=== PATIENT | female | born 1980 | race Two or more races ===

== ENCOUNTER → 2024-06-21 | Outpatient (CLI) | payer OTHER ==
[2024-06-21 08:30] LABS: Urine Bacteria None Seen /hpf (None Seen)
[2024-06-21 08:37] LABS: Basophils # (auto) 0.1 10 ^3/uL (0-0.2); Eosinophils # (auto) 0.6 10 ^3/uL (0-0.8); Mean Corpuscular Hemoglobin 24.1 pg (28.0-32.0); Neutrophils # (auto) 5.4 10 ^3/uL (1.6-8.6)
[2024-06-21 08:39] LABS: Basophils % (auto) 0.8 % (0.0-2.0); Eosinophils % (auto) 6.7 % (0.0-7.0); Hematocrit 41.2 % (36.0-46.0); Lymphocytes # (auto) 2.2 10 ^3/uL (0.4-5.4); Lymphocytes % (auto) 24.2 % (10.0-50.0); Mean Corpuscular Hgb Conc. 31.6 g/dL (32.0-36.0); Mean Corpuscular Volume 76.5 fL (80.0-100.0); Monocytes # (auto) 0.9 10 ^3/uL (0-1.3); Monocytes % (auto) 9.6 % (0.0-12.0); Neutrophils % (auto) 58.7 % (37.0-80.0); Nucleated Red Blood Cells % 0.1 %; Platelet Count (auto) 261 10^3/uL (140-450); Red Blood Cells 5.39 10^6/uL (4.0-5.20); Red Cell Distribution Width 16.8 % (11.8-14.3); White Blood Cell 9.2 10^3/uL (4.4-10.8)
[2024-06-21 08:56] LABS: Urine Blood Negative /uL (Negative); Urine Clarity Clear (Clear); Urine Color Yellow (Yellow); Urine Mucus FEW (None Seen); Urine Protein, UAD TRACE (Negative); Urine Specific Gravity 1.027 (1.001-1.035); Urine Squamous Epithelial Cell FEW /hpf (<5); Urine Urobilinogen Normal (Negative); Urine WBC 1 /HPF (0-5); Urine pH 6.5 (5.0-9.0)
[2024-06-21 09:15] LABS: Alanine Aminotransferase 34 U/L (7-40); Alkaline Phosphatase 71 U/L (46-116); Anion Gap 7 (5-15); Aspartate Aminotransferase 28 U/L (13-40); BUN/Creatinine Ratio 19.7 (10.0-20.0); Blood Urea Nitrogen 15 mg/dL (9-23); Calcium 10.1 mg/dL (8.7-10.4); Carbon Dioxide 26 mmol/L (20-31); Chloride 103 mmol/L (98-107); Glucose 157 mg/dL (74-106); Potassium 4.5 mmol/L (3.5-5.1); Sodium 136 mmol/L (136-145)
[2024-06-21 09:16] LABS: LDL Cholesterol 103 mg/dL (< 100); Triglycerides 128 mg/dL (< 150)
[2024-06-21 09:17] LABS: Albumin 4.5 g/dL (3.2-4.8); Cholesterol 156 mg/dL (< 200); Total Protein 7.4 g/dL (5.7-8.2)
[2024-06-21 09:21] LABS: HDL Cholesterol 44 mg/dL (40-59)
[2024-06-21 11:14] LABS: Free T4 (Free Thyroxine) 0.96 ng/dL (0.89-1.76)
[2024-06-21 12:45] LABS: Bilirubin, Total 0.6 mg/dL (0.2-1.0)
== END | disposition home or self-care (01) ==
LOC: LAB 08:19
PROVIDERS: ATTEND Internal Medicine
DX: E11.9 Type 2 diabetes mellitus without complications (principal); I10 Essential (primary) hypertension
CPT/HCPCS: 36415; 80053; 80061; 81001; 82043; 82607; 84439; 84443; 85025

== ENCOUNTER → 2024-07-27 | Outpatient (CLI) | payer OTHER | END | disposition home or self-care (01) | LOC: LAB 07:35 | PROVIDERS: ATTEND Internal Medicine | DX: Z12.11 Encounter for screening for malignant neoplasm of colon (principal) | CPT/HCPCS: 82270; 82272 ==

== ENCOUNTER → 2025-02-27 | Outpatient (CLI) | payer OTHER ==
[2025-02-27 08:12] LABS: Hemoglobin 12.2 g/dL (12.2-16.2)
[2025-02-27 08:15] LABS: Hematocrit 38.7 % (36.0-46.0); Mean Corpuscular Hemoglobin 23.4 pg (28.0-32.0); Mean Corpuscular Volume 74.1 fL (80.0-100.0); Nucleated Red Blood Cells % 0.0 %
[2025-02-27 08:47] LABS: Urine Protein, UAD TRACE (Negative)
[2025-02-27 12:10] LABS: Alanine Aminotransferase 34 U/L (7-40); Alkaline Phosphatase 96 U/L (46-116); Anion Gap 9 (5-15); BUN/Creatinine Ratio 14.7 (10.0-20.0); Blood Urea Nitrogen 11 mg/dL (9-23); Calcium 9.1 mg/dL (8.7-10.4); Carbon Dioxide 28 mmol/L (20-31); Chloride 99 mmol/L (98-107); Potassium 4.1 mmol/L (3.5-5.1); Sodium 136 mmol/L (136-145); Total Protein 7.5 g/dL (5.7-8.2)
[2025-02-27 12:11] LABS: Albumin 4.1 g/dL (3.2-4.8); Bilirubin, Total 0.4 mg/dL (0.2-1.0); Cholesterol 142 mg/dL (< 200); HDL Cholesterol 41 mg/dL (40-59)
[2025-02-27 12:15] LABS: Glucose 236 mg/dL (74-106); Triglycerides 239 mg/dL (< 150)
== END | disposition home or self-care (01) ==
LOC: LAB 07:47
PROVIDERS: ATTEND Internal Medicine
DX: I10 Essential (primary) hypertension (principal); E11.9 Type 2 diabetes mellitus without complications
CPT/HCPCS: 36415; 80053; 80061; 81001; 82043; 83036; 84439; 84443; 85025; 85652

== ENCOUNTER 2025-04-12 10:38 | Outpatient (CLI) | payer OTHER ==
--- NOTE | 2025-04-12 12:32 | DVH ---
US US GUIDANCE FOR NEEDLE PLACEME, HISTORY: LEFT BREAST Biopsy PROCEDURE: Informed consent was obtained. The patient was positioned supine on the table, and limited US was performed of the left breast. The skin overlying the biopsy site was prepped with chlorhexidine which was allowed to dry. Time out was performed. The entry site was anesthetized with 1% lidocaine. A 16 gauge Biopince needle was advanced into the mass. Multiple core biopsy samples were obtained using the 16 gauge biopsy needle. The samples were sent to formalin to pathology for analysis. A marker clip was deployed in the mass. Imaging through the biopsy site was performed. No immediate complication was identified. FINDINGS: Intra-procedural images show the biopsy needle at the lesion. No significant post biopsy hemorrhage is identified. IMPRESSION: US-guided biopsy of the left breast lesion at 9 o clock . Pathology results pending.
== END 2025-04-12 17:00 | disposition home or self-care (01) ==
LOC: XYW 10:38
PROVIDERS: ATTEND Internal Medicine
DX: N63.25 Unspecified lump in the left breast, overlapping quadrants (principal); N60.32 Fibrosclerosis of left breast
CPT/HCPCS: 19083; 76642; 88305; A4648; 76942